=== PATIENT | female | born 1995 | race African-American/Black ===

== ENCOUNTER 2018-11-12 07:39 | Day surgery (SDC) | payer OTHER ==
[~2018-11-12 07:39] MED LIST: DESFLURANE 15 MIN
[2018-11-12] MEDS: LACTATED RINGER'S 1,000 ML IV (08:34)
[2018-11-12] MEDS ORDERED: TRIAMCINOLONE ACET 40 MG/ML INJ (08:58)
[2018-11-12] MEDS ORDERED: BUPIVACAINE 0.25%/EPI (SDV) 30 ML INJ (08:58)
[2018-11-12] MEDS ORDERED: PROPOFOL 20 ML (10:45)
[2018-11-12] MEDS ORDERED: NEOSTIGMINE 3 MG/3 ML SYRINGE (10:45)
[2018-11-12] MEDS ORDERED: CEFAZOLIN 1 GM INJ (10:45)
[2018-11-12] MEDS ORDERED: FENTAnyl 50 MCG/ML VIAL (10:45)
[2018-11-12] MEDS ORDERED: GLYCOPYRROLATE 0.4 MG INJ (10:45)
[2018-11-12] MEDS ORDERED: DEXAMETHASONE 4 MG/ML 5 ML INJ (10:45)
[2018-11-12] MEDS ORDERED: ROCURONIUM 50 MG INJ (10:45)
[2018-11-12] MEDS ORDERED: ONDANSETRON 4 MG INJ (10:45)
[2018-11-12] MEDS ORDERED: MIDAZOLAM 1 MG/ML 2 ML INJ (10:45)
[2018-11-12] MEDS: TRIAMCINOLONE ACET 40 MG/ML INJ INJ ×2 (11:05)
[2018-11-12] MEDS: BUPIVACAINE 0.25%/EPI (SDV) 30 ML INJ INJ ×2 (11:05)
[2018-11-12] MEDS ORDERED: EPHEDrine 25 MG/5 ML SYG IV (12:00)
[2018-11-12] MEDS ORDERED: ALBUTEROL 0.083% (NEB) 2.5 MG/3 ML AMP HHN (12:00)
[2018-11-12] MEDS ORDERED: hydrALAzine 20 MG INJ IV (12:00)
[2018-11-12] MEDS ORDERED: FENTAnyl 50 MCG/ML VIAL IV ×2 (12:00)
[2018-11-12] MEDS ORDERED: HYDROmorphONE 1 MG/5 ML IV SYRINGE IV ×3 (12:00)
[2018-11-12] MEDS ORDERED: MEPERIDINE 25 MG INJ IV (12:00)
[2018-11-12] MEDS ORDERED: LABETALOL HCL 20MG INJ IV (12:00)
[2018-11-12] MEDS ORDERED: TRIMETHOBENZAMIDE 100 MG/ML VIAL IM (12:00)
[2018-11-12] MEDS ORDERED: IPRATROPIUM (NEB) 0.5 MG/2.5 ML AMP HHN (12:00)
[2018-11-12] MEDS ORDERED: DIPHENHYDRAMINE 50 MG INJ IV (12:00)
[2018-11-12] MEDS ORDERED: MIDAZOLAM 1 MG/ML 2 ML INJ IV (12:00)
[2018-11-12] MEDS ORDERED: OXYCODONE/ACETAMINOPHEN (5/325) TAB PO ×2 (12:00)
[2018-11-12] MEDS: FENTAnyl 50 MCG/ML VIAL IV (12:41)
[2018-11-12] MEDS: ONDANSETRON 4 MG INJ IV (12:41)
== END 2018-11-12 14:02 | disposition home or self-care (01) ==
LOC: SDS 07:39
DX: J35.3 Hypertrophy of tonsils with hypertrophy of adenoids (principal); G47.33 Obstructive sleep apnea (adult) (pediatric); J98.8 Other specified respiratory disorders
CPT/HCPCS: 42821; 84703; 88304

== ENCOUNTER 2019-02-18 13:19 | Emergency (ER) | payer OTHER | END 2019-02-18 13:32 | disposition home or self-care (01) | LOC: FTE 13:19 → E/R 13:32 | DX: S80.862A Insect bite (nonvenomous), left lower leg, initial encounter (principal); L08.9 Local infection of the skin and subcutaneous tissue, unspecified; W57.XXXA Bitten or stung by nonvenomous insect and other nonvenomous arthropods, initial encounter; Y92.9 Unspecified place or not applicable | CPT/HCPCS: 99283; Z7502 ==